=== PATIENT | male | born 2000 | race Caucasian/White ===

== ENCOUNTER 2023-07-07 22:40 | Emergency (ER) | payer MEDICAID ==
[~2023-07-07] VITALS: Ht 170.2 cm; Wt 86.0 kg
[2023-07-07 22:55] VITALS: BP 155/100; PULSE 94; RESP 14; TEMP 98.4; O2SAT 99
== END 2023-07-07 23:40 | disposition left against medical advice (07) ==
LOC: ER 22:40
DX: F41.9 Anxiety disorder, unspecified (principal); Z53.21 Procedure and treatment not carried out due to patient leaving prior to being seen by health care provider
CPT/HCPCS: 99281